=== PATIENT | female | born 1935 | race Two or more races ===

== ENCOUNTER 2022-11-18 09:28 | Emergency (ER) | payer MEDICARE, OTHER ==
[~2022-11-18] VITALS: Ht 160 cm; Wt 57.1 kg
[~2022-11-18 09:28] MED LIST: ALLO100T PO; ALPR-624 PO; ASPI-1265 PO; ATEN-169 PO; CHOL400T32 PO; CLON-529 PO; HCTZ25T PO; LANS30CA37 PO; LOSA25TA96 PO; OMEG1CAP54 PO; SIMV-341 PO
[2022-11-18 11:51] LABS: BASOPHILS % (AUTO) 0.4 % (0-1); EOSINOPHILS # (AUTO) 0.1 X10'3 (0-0.9); EOSINOPHILS % (AUTO) 0.9 % (0-6); HEMOGLOBIN 12.9 g/dl (12.0-16.0); LYMPHOCYTES # (AUTO) 1.2 X10'3 (1.1-4.8); LYMPHOCYTES % (AUTO) 12.7 % (21-51); MEAN CORPUSCULAR HEMOGLOBIN 31.8 PG (27.0-31.0); MEAN CORPUSCULAR HGB CONC 33.1 g/dL (33.0-36.5); MEAN PLATELET VOLUME 6.9 FL (7.4-10.4); MONOCYTES # (AUTO) 0.4 X10'3 (0-0.9); MONOCYTES % (AUTO) 4.1 % (2-12); NEUTROPHILS % (AUTO) 81.9 % (42-75); PLATELET COUNT 286 X10'3 (140-440); RED BLOOD COUNT 4.06 X10'6 (4.20-5.60); RED CELL DISTRIBUTION WIDTH 13.1 % (11.5-14.5); WHITE BLOOD COUNT 9.8 X10'3 (4.5-11.0)
[2022-11-18 12:04] LABS: APTT 26 SECONDS (22-32)
[2022-11-18 12:07] LABS: ALANINE AMINOTRANSFERASE 22 U/L (12-78); ALBUMIN 3.9 G/DL (3.4-5.0); ALBUMIN/GLOBULIN RATIO 1.1 (1.1-1.5); ALKALINE PHOSPHATASE 93 IU/L (46-116); ANION GAP 11 (8-16); ASPARTATE AMINO TRANSFERASE 21 U/L (10-37); BILIRUBIN,TOTAL 0.3 MG/DL (0.1-1.0); BLOOD UREA NITROGEN 39 MG/DL (7-18); BUN/CREATININE RATIO 20.1 (6.6-38.0); CALCIUM 9.4 MG/DL (8.5-10.1); CHLORIDE 105 MMOL/L (99-107); CREATININE 1.94 MG/DL (0.40-0.90); GLUCOSE 93 MG/DL (70-104); LIPASE 191 U/L (73-393); POTASSIUM 4.5 MMOL/L (3.5-5.1); SODIUM 139 MMOL/L (135-145); TOTAL CARBON DIOXIDE 23.3 MMOL/L (24-32); TOTAL PROTEIN 7.6 G/DL (6.4-8.2); eGFR 24 ML/MIN
[2022-11-18 13:58] LABS: CLARITY,URINE CLEAR (Clear); COLOR,URINE YELLOW (Yellow); GLUCOSE, URINE NEGATIVE (Neg); KETONES,URINE NEGATIVE (Neg); LEUKOCYTE ESTERASE ,URINE TRACE (Neg); NITRITES, URINE NEGATIVE (Neg); OCCULT BLOOD,URINE NEGATIVE (Neg); PH,URINE 5.5 (4.8-8.0); PROTEIN,URINE NEGATIVE (Neg); UROBILINOGEN,URINE 0.2 E.U/dL (0.2-1.0)
[2022-11-18 14:29] LABS: UA COLLECTION TYPE NON-SPECIFIED
[2022-11-18 14:31] LABS: BACTERIA,URINE FEW /HPF (Neg); RBC,URINE NONE SEEN /HPF (0-2); WBC,URINE 0-4 /HPF (0-4)
[2022-11-18 14:32] LABS: SQUAMOUS EPITHELIAL CELL,UR MODERATE /LPF (FEW)
[2022-11-18] MEDS ORDERED: acetaminophen 325mg tablet PO ONE (14:50)
[2022-11-18] MEDS ORDERED: MELO-102 PO (15:53)
[2022-11-18 16:11] VITALS: BP 134/78
== END 2022-11-18 16:14 | disposition home or self-care (01) ==
LOC: ER 09:29
DX: N28.9 Disorder of kidney and ureter, unspecified (principal); M79.601 Pain in right arm; I71.40 Abdominal aortic aneurysm, without rupture, unspecified; K21.9 Gastro-esophageal reflux disease without esophagitis; F41.9 Anxiety disorder, unspecified; I10 Essential (primary) hypertension; Z79.899 Other long term (current) drug therapy; Z79.82 Long term (current) use of aspirin
CPT/HCPCS: 36415; 71045; 71250; 74176; 80053; 81001; 83690; 85025; 85610; 85730; 87088; 99285

== ENCOUNTER 2023-02-19 10:50 | Emergency (ER) | payer MEDICARE, OTHER ==
[~2023-02-19] VITALS: Ht 160 cm; Wt 56.8 kg
[~2023-02-19 10:50] MED LIST changes: +MELO-102 PO
--- NOTE | 2023-02-19 12:25 | NUR ---
Pt in FTD, Pt c/o a could w/ productive cough x1 week. Pt educated to POC. Pt in agreement. Expiratory wheezes corse to BLL. Pending MD orders, eval and treatment.
[2023-02-19] MEDS ORDERED: ALBU90AE INH (13:50)
[2023-02-19] MEDS ORDERED: BENZ-38 PO (13:50)
[2023-02-19] MEDS ORDERED: DOXY100C77 PO (13:50)
[2023-02-19 13:58] VITALS: BP 142/62
== END 2023-02-19 13:55 | disposition home or self-care (01) ==
LOC: ER 10:51
DX: J20.9 Acute bronchitis, unspecified (principal); K21.9 Gastro-esophageal reflux disease without esophagitis; F41.9 Anxiety disorder, unspecified; I10 Essential (primary) hypertension; Z79.899 Other long term (current) drug therapy; Z79.1 Long term (current) use of non-steroidal anti-inflammatories (NSAID); Z79.2 Long term (current) use of antibiotics; Z79.82 Long term (current) use of aspirin
CPT/HCPCS: 71046; 99283

== ENCOUNTER 2023-09-10 13:44 | Emergency (ER) | payer OTHER ==
[~2023-09-10] VITALS: Ht 160 cm; Wt 47.2 kg
[~2023-09-10 13:44] MED LIST changes: -ALLO100T PO; -ALPR-624 PO; +ALPR0.252 PO; +AMLO10TA13 PO; -ASPI-1265 PO; -ATEN-169 PO; -CHOL400T32 PO; -CLON-529 PO; -HCTZ25T PO; -LANS30CA37 PO; -LOSA25TA96 PO; -MELO-102 PO; -OMEG1CAP54 PO; +PANT40TA54 PO; -SIMV-341 PO; +SIMV-42 PO
[2023-09-10 13:46] VITALS: BP 198/96; PULSE 111; TEMP 99.1; O2SAT 95
[2023-09-10 16:29] VITALS: RESP 16
[2023-09-10] MEDS ORDERED: NIRM1TAB PO (17:17)
== END 2023-09-10 18:33 | disposition home or self-care (01) ==
LOC: ER 13:45
DX: U07.1 COVID-19 (principal); E78.00 Pure hypercholesterolemia, unspecified; I10 Essential (primary) hypertension; K21.9 Gastro-esophageal reflux disease without esophagitis; Z79.899 Other long term (current) drug therapy
CPT/HCPCS: 36415; 87502; 87503; 87811; 99283

== ENCOUNTER 2023-09-19 11:55 | Emergency (ER) | payer OTHER ==
[~2023-09-19] VITALS: Ht 160 cm; Wt 54.5 kg
[~2023-09-19 11:55] MED LIST changes: +NIRM1TAB PO
[2023-09-19] MEDS ORDERED: normal saline 1000ML IV soln IVB ONE (13:45)
[2023-09-19 14:14] LABS: BASOPHILS % (AUTO) 0.3 % (0-1); EOSINOPHILS % (AUTO) 0.3 % (0-6); HEMOGLOBIN 13.2 g/dl (12.0-16.0); LYMPHOCYTES # (AUTO) 0.8 X10'3 (1.1-4.8); LYMPHOCYTES % (AUTO) 9.1 % (21-51); MEAN CORPUSCULAR HEMOGLOBIN 31.3 PG (27.0-31.0); MEAN CORPUSCULAR HGB CONC 34.8 g/dL (33.0-36.5); MEAN CORPUSCULAR VOLUME 90.1 FL (78-98); MEAN PLATELET VOLUME 7.3 FL (7.4-10.4); MONOCYTES # (AUTO) 0.6 X10'3 (0-0.9); MONOCYTES % (AUTO) 6.6 % (2-12); NEUTROPHILS # (AUTO) 7.6 X10'3 (1.8-7.7); NEUTROPHILS % (AUTO) 83.7 % (42-75); PLATELET COUNT 295 X10'3 (140-440); RED BLOOD COUNT 4.22 X10'6 (4.20-5.60); RED CELL DISTRIBUTION WIDTH 13.3 % (11.5-14.5); WHITE BLOOD COUNT 9.1 X10'3 (4.5-11.0)
[2023-09-19 14:47] LABS: ALANINE AMINOTRANSFERASE 16 U/L (12-78); ALBUMIN 3.6 G/DL (3.4-5.0); ALBUMIN/GLOBULIN RATIO 0.8 (1.1-1.5); ALKALINE PHOSPHATASE 75 IU/L (46-116); ANION GAP 14 (8-16); ASPARTATE AMINO TRANSFERASE 20 U/L (10-37); BILIRUBIN,TOTAL 0.4 MG/DL (0.1-1.0); BLOOD UREA NITROGEN 44 MG/DL (7-18); BUN/CREATININE RATIO 18.7 (10.0-20.0); CALCIUM 9.5 MG/DL (8.5-10.1); CHLORIDE 102 MMOL/L (99-107); CREATININE 2.35 MG/DL (0.40-0.90); GLUCOSE 79 MG/DL (70-104); LIPASE 49 U/L (16-77); POTASSIUM 3.6 MMOL/L (3.5-5.1); SODIUM 140 MMOL/L (135-145); TOTAL CARBON DIOXIDE 23.7 MMOL/L (24-32); TOTAL PROTEIN 7.9 G/DL (6.4-8.2); eCRCL 13 ML/MIN; eGFR 19 ML/MIN
[2023-09-19] MEDS ORDERED: acetaminophen 325mg tablet PO ONE (15:15)
[2023-09-19 15:58] LABS: BILIRUBIN,URINE NEGATIVE (Neg); CLARITY,URINE SLIGHTLY CLOUDY (Clear); COLOR,URINE YELLOW (Yellow); GLUCOSE, URINE NEGATIVE (Neg); KETONES,URINE NEGATIVE (Neg); LEUKOCYTE ESTERASE ,URINE SMALL (Neg); NITRITES, URINE NEGATIVE (Neg); OCCULT BLOOD,URINE NEGATIVE (Neg); PH,URINE 5.5 (4.8-8.0); PROTEIN,URINE 100 mg/dl (Neg); UROBILINOGEN,URINE 0.2 E.U/dL (0.2-1.0)
[2023-09-19 16:07] LABS: UA COLLECTION TYPE CLN CATCH MIDSTREAM
[2023-09-19 16:23] LABS: BACTERIA,URINE 2+ /HPF (Neg); RBC,URINE NONE SEEN /HPF (0-2); SQUAMOUS EPITHELIAL CELL,UR MANY /LPF (FEW); TRANSITIONAL EPI CELLS,URINE FEW /HPF
[2023-09-19] MEDS ORDERED: NITR100C PO (17:10)
[2023-09-19] MEDS ORDERED: FOSFOMYCIN TROMETHAMINE 3 GM PACKET PO ONE (17:10)
[2023-09-19 17:20] VITALS: BP 168/72; PULSE 105; RESP 16; TEMP 97.9; O2SAT 97
== END 2023-09-19 17:26 | disposition home or self-care (01) ==
LOC: ER 11:56
DX: N39.0 Urinary tract infection, site not specified (principal)
CPT/HCPCS: 36415; 71045; 80053; 81001; 83605; 83690; 84484; 85025; 87040; 87077; 87186; 96360; 99285; J7030; J7040

== ENCOUNTER 2023-12-09 10:44 | Emergency (ER) | payer OTHER ==
[~2023-12-09] VITALS: Ht 157.5 cm; Wt 48.3 kg
[~2023-12-09 10:44] MED LIST changes: +NITR100C PO
[2023-12-09 11:27] VITALS: BP 172/92; PULSE 68; RESP 16; TEMP 97.9; O2SAT 99
== END 2023-12-09 13:11 | disposition home or self-care (01) ==
LOC: ER 10:44
DX: M27.0 Developmental disorders of jaws (principal); E78.00 Pure hypercholesterolemia, unspecified; I10 Essential (primary) hypertension; K21.9 Gastro-esophageal reflux disease without esophagitis; F41.9 Anxiety disorder, unspecified
CPT/HCPCS: 99281